=== PATIENT | male | born 1955 | race Hispanic/Latino ===

== ENCOUNTER 2017-06-13 05:59 | Inpatient (IN) | payer MEDICARE ==
[2017-06-13 07:49] LABS: Anion Gap 30 mmol/L (10-20); BUN (Urea Nitrogen) 117 mg/dL (8.4-25.7); Calc. Creatinine Clearance 0 mL/min (70-130); Carbon Dioxide 12 mmol/L (23-31); Chloride 93 mmol/L (98-107); Estimated GFR-MDRD 4; Glucose 218 mg/dL (80-115); Sodium 128 mmol/L (136-145)
[2017-06-13 07:57] LABS: Troponin I 0.861 ng/mL (< 0.028)
[2017-06-13] MEDS ORDERED: Sodium Bicarb 50 MEQ/50 ML Abboject 8.4% SYRINGE ONE (08:39)
[2017-06-13] MEDS ORDERED: Insulin Regular 300 UNITS/3 ML VIAL ONE (08:39)
[2017-06-13] MEDS ORDERED: Dextrose 50% Abboject 50 ML SYRINGE ONE (08:39)
[2017-06-13] MEDS ORDERED: Vancomycin HCl 1 GM in Premix Bag 1 BAG IVPB SCH ×2 (11:15→15:30)
[2017-06-13] MEDS ORDERED: Meropenem 1 GM in Sodium Chloride 0.9% 100 ML IVPB SCH (11:30)
[2017-06-13] MEDS ORDERED: Dextrose 5% in Water 1,000 ML IV PRN (11:55)
[2017-06-13] MEDS ORDERED: Dextrose 50% Abboject 50 ML SYRINGE SLOW IVP PRN (11:55)
[2017-06-13] MEDS ORDERED: Senokot 8.6 MG TAB PO PRN (11:56)
[2017-06-13] MEDS ORDERED: Bisacodyl 10 MG SUPP PR PRN (11:56)
[2017-06-13 11:59] LABS: HBSAg Index 0.38 S/CO (0-0.99); Hep B Surf Ag Non-Reactive S/CO (NonReactive)
[2017-06-13] MEDS ORDERED: hydrALAZINE 20 MG/ML VIAL SLOW IVP PRN (12:11)
[2017-06-13] MEDS: Acetaminophen 325 MG TAB PO PRN ×2 (12:11→16:35)
[2017-06-13] MEDS ORDERED: Eucerin (Mineral Oil/Petrolatum,White) 30 gm Jar TOP PRN (12:11)
[2017-06-13 12:12] LABS: Troponin I 0.951 ng/mL (< 0.028)
--- NOTE | 2017-06-13 12:13 | HP ---
DATE OF ADMISSION: 06/13/2017 PRIMARY CARE PHYSICIAN: Rosalinda Vicente M.D. PRIMARY SHARE DAIRY FARMER: New Stahl M.D. CHIEF COMPLAINT: Fatigue. Patient is a transfer from [facility]. HISTORY OF PRESENT ILLNESS: Patient is a 61-year-old male with end-stage renal disease on h emodialysis, cirrhosis with portal hypertension, diabetes mellitus type 2, coronary artery disease, a nd hypertension who presented to [facility] with generalized weakness and fatigue of 3 d ays duration. The patient had missed hemodialysis on Saturday. He was last dialyzed on Saturday. He had some cough which was productive of small amount of phlegm. No fever or chills reported. He den ies any chest pain, shortness of breath, palpitations, lightheadedness, dizziness or syncope. No cam sea, vomiting, diarrhea or abdominal pain reported. He denies any skin rash. No sick contacts repor jose. In the emergency room at [facility], his temperature was 99.8 with pulse rate of 133, re spirations 26, blood pressure of 157/57. His initial troponin was 0.69. His potassium was 8.3 with creatinine of 12.6, BUN 110 with bicarbonate of 14. He received sodium bicarbonate, calcium gluconat e 2 grams, insulin D50, and albuterol nebulization along with aspirin and was transferred to [facility] for hospital admission. At this time, his temperature was 102. He is currently undergoing mumtaz rgent hemodialysis. PAST MEDICAL HISTORY: 1. End-stage renal disease, on hemodialysis Saturday, Saturday, Saturday by Dr. Stahl. 2. Cirrhosis with portal hypertension. 3. Secondary hyperparathyroidism. 4. Diabetes mellitus type 2. 5. Coronary artery disease. 6. Chronic anemia secondary to renal insufficiency. 6. Hypertension. 7. Folic acid deficiency. 8. Former smoker. Patient has [id number] smoking history. 9. Coronary stent placement. 10. History of esophageal varices. 11. History of endocarditis. PAST SURGICAL HISTORY: 1. Cardiac catheterization with stent placement in [place]. 2. EGD and colonoscopy in 2017 in [place] and 4 years ago, patient had EGD and colonoscopy in [place] . 3. Dialysis access. 4. Bowel surgery in 2015. 5. Colostomy in 2016. ALLERGIES: Patient is allergic to ANCEF and FLAGYL. CURRENT HOME MEDICATIONS: Patient does not remember any of his home medications. Family to bring th e accurate list of medications. SOCIAL HISTORY: Patient currently lives at home. No smoking, alcohol or drug use. He continues to smoke up to 3 cigarettes a day. FAMILY HISTORY: Negative for premature coronary artery disease. Mother with Alzheimer dementia. Fa ther with congestive heart failure. One brother with colon disease requiring colon resection. REVIEW OF SYSTEMS: The following complete review of systems was negative, unless otherwise mentioned in the HPI or below: Constitutional: Weight loss or gain, ability to conduct usual activities. Skin: Rash, itching. Eyes: Double vision, pain. ENT/Mouth: Nose bleeding, neck stiffness, pain, tenderness. Cardiovascular: Palpitations, dyspnea on exertion, orthopnea. Respiratory: Shortness of breath, wheezing, cough, hemoptysis, fever or night sweats. Gastrointestinal: Poor appetite, abdominal pain, heartburn, nausea, vomiting, constipation, or diarr hea. Genitourinary: Urgency, frequency, dysuria, nocturia. Musculoskeletal: Pain, swelling. Neurologic/Psychiatric: Anxiety, depression. Allergy/Immunologic: Skin rash, bleeding tendency. PHYSICAL EXAMINATION: VITAL SIGNS: As discussed above. GENERAL: A 61-year-old male, ill appearing. Sitting appropriately. Slow to respond. HEENT: Head is atraumatic, normocephalic. Sclerae are anicteric. Moist mucous membranes. NECK: Supple, no JVD, no neck stiffness. LUNGS: Had scattered rhonchi, without any wheezing or rales. Symmetrical. Trachea midline. HEART: S1 and S2 present. Regular rate and rhythm, 2/6 systolic murmur over the mitral area. ABDOMEN: Soft, nontender, bowel sounds present. EXTREMITIES: 1+ edema in bilateral lower extremities. No calf tenderness. SKIN: Warm and dry. LYMPH NODES: No palpable lymph nodes in the neck. PERIPHERAL VASCULAR: Radial pulses palpable bilaterally. MUSCULOSKELETAL: No joint swelling or tenderness. NEUROLOGIC: As discussed above. PSYCHIATRY: As discussed above. LYMPH NODES: No palpable lymph nodes in the neck. LABORATORY DATA AND IMAGING DATA: Laboratory findings as discussed above. Repeat potassium at this facility was 7. Repeat troponin was 0.861. BNP was 4354. LFT showed total bilirubin 0.7 with alkal ine phosphatase 192. AST 15, ALT 16, albumin of 3.6. EKG by my review showed peaked T-wave changes. Chest x-ray at [facility] was consistent with volume overload. IMPRESSION: 1. Sepsis with acute organ dysfunction of unclear etiology. 2. Volume overload with life threatening hyperkalemia requiring emergent hemodialysis. 3. End-stage renal disease on hemodialysis. 4. Chronic anemia requiring blood transfusions in the past. 5. Coronary artery disease with stent placement with elevated troponins. 6. Diabetes mellitus type 2. 7. Ongoing tobacco abuse with [id number] smoking history. 8. Cirrhosis with portal hypertension. 9. Secondary hyperparathyroidism. 10. Folic acid deficiency. 11. Hypertension. 12. Gastroesophageal reflux disease. 13. History of endocarditis in the past. 14. History of esophageal varices. PLAN: The patient will be monitored on the telemetry unit. He is currently undergoing emergent hemo dialysis. We will empirically start him on antibiotics after cultures. Consult Infectious Disease, Nephrology and Cardiology. Follow serial cardiac enzymes. Echocardiogram will be done. Aspirin; we will confirm home medications and start accordingly. Insulin sliding scale. Check ammonia level du e to somnolence. Patient was counseled to quit tobacco abuse. Plan of care was discussed with the p atient in detail. He stated understanding. Plan of care was discussed with the patient in detail. He stated understanding.
[2017-06-13] MEDS ORDERED: Oseltamivir 75 MG CAP PO SCH (12:30)
[2017-06-13 14:43] VITALS: BMI 32.9
[2017-06-13] MEDS ORDERED: Vancomycin HCl 1.5 GM in Sodium Chloride 0.9% 250 ML 300 ML IVPB SCH (15:30)
[2017-06-13] MEDS ORDERED: Vancomycin HCl 500 MG in Sodium Chloride 0.9% 100 ML IVPB SCH (15:30)
[2017-06-13] MEDS ORDERED: HOLD VANCOMYCIN FOR LEVEL >20 FS SCH (15:30)
[2017-06-13] MEDS ORDERED: Vancomycin HCl 1.25 GM in Sodium Chloride 0.9% 250 ML 250 ML IVPB SCH (15:30)
[2017-06-13] MEDS ORDERED: Vancomycin Sliding Scale 1 EACH FS ONE (15:30)
[2017-06-13] MEDS: Meropenem 500 MG, Admixture Fee 1 EACH in Sterile Water 10 ML SLOW IVP SCH (16:13)
[2017-06-13] MEDS: Insulin Regular 300 UNITS/3 ML VIAL SC PRN (16:35)
[2017-06-13] MEDS ORDERED: traMADol HCl 50 MG TAB PO PRN (20:21)
[2017-06-13] MEDS: Docusate 100 MG CAP PO SCH (20:42)
[2017-06-13] MEDS: Famotidine 20 MG TAB PO SCH (20:42)
[2017-06-13] MEDS: traMADol HCl 50 MG TAB PO PRN (20:43)
[2017-06-13] MEDS ORDERED: Famotidine/PF 20 mg/2ml Vial SLOW IVP SCH (21:00)
[2017-06-14] MEDS: Acetaminophen 325 MG TAB PO PRN (00:29)
--- NOTE | 2017-06-14 03:37 | CON ---
DATE OF CONSULTATION: 06/13/2017 REASON FOR CONSULTATION: Increased troponin levels, end-stage renal disease, recent atrial fibrillat ion, recent hyperkalemia and fever. HISTORY OF PRESENT ILLNESS: Mr. Garrett is a 61-year-old gentleman who is on hemodialysis. He has cirr hosis, portal hypertension, and coronary disease. He went to the hospital in [place] with hypertensi on, generalized weakness and fatigue. He missed one day of hemodialysis. His last dialysis was . He had cough, which was productive of phlegm. No subjective fever or chills. No chest pain. I n the emergency room, he was found to have a heart rate of 133 with atrial fibrillation and increased troponin level. He had low bicarbonate. He was found also to have a fever of 102 degrees. PAST MEDICAL HISTORY: 1. End-stage renal disease, on hemodialysis Saturday, Saturday, Saturday. 2. Cirrhosis. 3. Hyperparathyroidism. 4. Diabetes. 5. Coronary artery disease. He says he had stents placed year and a half ago. [facility] and stents were placed at that time. He did not have bruce st pain or pressure. ALLERGIES: The patient is allergic to ANCEF, and FLAGYL. SOCIAL HISTORY: Lives at home, continues to smoke three cigarettes per day. FAMILY HISTORY: Negative for heart disease in young age. REVIEW OF SYSTEMS: CONSTITUTIONAL: No significant weight gain or loss. VISION: No changes. HEARING: No changes. PULMONARY: Positive for cough. CARDIAC: No chest pain. GASTROINTESTINAL: No nausea, vomiting, or diarrhea. SKIN: No rashes. NEUROLOGIC: No unilateral weakness or numbness. PSYCHIATRIC: No unusual depression or anxiety. HEMATOLOGIC: No unusual bruising. GENITOURINARY: No burning with urination. PHYSICAL EXAMINATION: GENERAL: This is a pleasant gentleman resting comfortably in no distress. VITAL SIGNS: Most recent fevers 102 degrees. EYES: Sclerae nonicteric. Mouth mucous membranes moist. NECK: Supple, no lymphadenopathy. LUNGS: Clear, no wheezing, rales or rhonchi. CARDIOVASCULAR: Normal S1, normal S2. There is no murmur, rub or gallop. ABDOMEN: Soft, nontender, no hepatosplenomegaly. 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 No clubbing, cyanosis or edema. PERTINENT LABORATORY AND X-RAY FINDINGS: Potassium was 7.0 before dialysis, sodium is 128. Troponin 0.951. The patient did have atrial fibrillation. [facility] had a right bundle branch block at that time. The patient has sinus rhythm with no longer has a right bundle, does have left anterior fascicular block. ASSESSMENT: 1. Increased troponin level by demand ischemia. 2. Previous coronary artery disease. 3. Fever. 4. Hyperkalemia. 5. Hyponatremia. 6. History of coronary artery disease. PLAN: 1. Continue supportive care. 2. When the fever resolves consideration for stress testing to be given probably on Saturday if he i s doing well. 3. Blood cultures are pending. He says he does apparently have a history of endocarditis.
[2017-06-14] MEDS: traMADol HCl 50 MG TAB PO PRN ×2 (04:50→14:42)
[2017-06-14 05:21] LABS: INR-International Normal Ratio 1.3; Prothrombin Time 16.5 SEC (12.0-14.7)
[2017-06-14 05:44] LABS: Band 5 % (5-11); Lymphocytes 3 % (21-51); MDiff Complete? YES; Mean Corpuscular Hemoglobin 29.7 pg (27.0-31.0); Mean Corpuscular Volume 92.7 fl (80.0-94.0); Mean Platelet Volume 13.2 fL (7.4-10.4); Monocytes 8 % (0-10); Neutrophil 84 % (42-75); PLT Morphology Comment Appears Decreased; Platelet Count 44 thou/uL (130-400); RBC Distribution Width 17.4 % (11.5-14.5); Red Blood Cell (RBC) Count 3.01 mill/uL (4.70-6.10); White Blood Cell (WBC) Count 7.2 thou/uL (4.8-10.8)
[2017-06-14 05:56] LABS: ALT (SGPT) 11 U/L (8-55); AST (SGOT) 16 U/L (5-34); Albumin 3.1 g/dL (3.4-4.8); Alkaline Phosphatase 143 U/L (40-150); Anion Gap 21 mmol/L (10-20); BUN (Urea Nitrogen) 58 mg/dL (8.4-25.7); Calc. Creatinine Clearance 14 mL/min (70-130); Calcium 7.5 mg/dL (7.8-10.44); Carbon Dioxide 25 mmol/L (23-31); Chloride 90 mmol/L (98-107); Estimated GFR-MDRD 7; Globulin 3.1 g/dL (2.4-3.5); Glucose 206 mg/dL (80-115); Potassium 6.2 mmol/L (3.5-5.1); Protein, Total 6.2 g/dL (5.8-8.1); Sodium 130 mmol/L (136-145)
--- NOTE | 2017-06-14 06:50 | CON ---
DATE OF CONSULTATION: 06/13/2017 CONSULTING PHYSICIAN: Dr. Parr. REASON FOR CONSULTATION: Hyperkalemia. REASON FOR ADMISSION: Fatigue. HISTORY OF PRESENT ILLNESS: This is a 61-year-old male with history of end-stage renal disease, cirrhosis, type 2 diabetes, hypertension, coronary artery disease, who came to the hospital with weakness. The patient missed dialysis for a few days and came to the hospital and was found to have potassium of 8.3 with EKG changes. Nephrology was consulted for emergent dialysis. The patient was seen in the ER and emergent dialysis order given. The patient is very weak and was later found to have a fever and had further workup. PAST MEDICAL HISTORY: Positive for end-stage renal disease, cirrhosis, portal hypertension, secondary hyperparathyroidism, type 2 diabetes, coronary artery disease, anemia, hypertension, folic acid, tobacco use, . PAST SURGICAL HISTORY: Cardiac catheterization, EGD, colonoscopy, dialysis access placed, bowel surgery, colostomy. HOME MEDICATIONS: Tramadol, ropinirole, zolpidem, Chantix, promethazine, Singulair, [place], Folvite, iron, PhosLo, atorvastatin, aspirin. ALLERGIES: CEFAZOLIN, METRONIDAZOLE, PREDNISONE. SOCIAL HISTORY: No smoking, alcohol, or illicit drug abuse. FAMILY HISTORY: Positive for heart disease. REVIEW OF SYSTEMS: The following complete review of systems was negative, unless otherwise mentioned in the HPI or below: Constitutional: Weight loss or gain, ability to conduct usual activities. Skin: Rash, itching. Eyes: Double vision, pain. ENT/Mouth: Nose bleeding, neck stiffness, pain, tenderness. Cardiovascular: Palpitations, dyspnea on exertion, orthopnea. Respiratory: Shortness of breath, wheezing, cough, hemoptysis, fever or night sweats. Gastrointestinal: Poor appetite, abdominal pain, heartburn, nausea, vomiting, constipation, or diarrhea. Genitourinary: Urgency, frequency, dysuria, nocturia. Musculoskeletal: Pain, swelling. Neurologic/Psychiatric: Anxiety, depression. Allergy/Immunologic: Skin rash, bleeding tendency. PHYSICAL EXAMINATION: GENERAL: This is a well-built male, in no apparent distress. VITAL SIGNS: Temperature 96, pulse 100, respiratory rate 14, blood pressure 128 /69. HEENT: Atraumatic, normocephalic. Oral mucosa is moist. NECK: Supple, no masses. CARDIOVASCULAR: S1, S2 heard. Rate and rhythm regular. RESPIRATORY: Clear. ABDOMEN: Soft. MUSCULOSKELETAL: 1+ edema. DERMATOLOGIC: No skin rash. NEUROLOGIC: Alert and awake. PSYCHIATRIC: depressed LABORATORY: Potassium is 7.0, BUN is 117, creatinine is 12.2. ASSESSMENT AND PLAN: 1. Severe hyperkalemia with life threatening EKG changes. Plan is to have emergent dialysis, hyponatremia. 2. Acidosis. We will have dialysis. 3. Azotemia. 4. End-stage renal disease on dialysis. 5. Hypertension. We will continue on medication. 6. Fever. workup. Will check echocardiogram, chest x-ray, and further workup. Plan is to continue dialysis as tolerated. Limit potassium intake. MTDD
--- NOTE | 2017-06-14 08:44 | RAD ---
UPRIGHT PORTABLE CHEST ONE VIEW: HISTORY: A 61-year-old male with sepsis. COMPARISON: 02/03/2015 FINDINGS: Monitor leads overly the chest. Increased linear and interstitial markings bilaterally without confl uent pneumonia, overt edema, or pleural effusion. No cardiomegaly. IMPRESSION: Stable increased markings bilaterally. No evidence of pneumonia or other acute process. POS: [facility]
[2017-06-14] MEDS ORDERED: Aspirin 325 MG TAB PO SCH (09:00)
[2017-06-14 10:18] LABS: Vancomycin, Trough 22.5 ug/mL
--- NOTE | 2017-06-14 11:41 | PRG ---
DATE OF SERVICE: 06/14/2017 SUBJECTIVE: Patient was seen and examined at bedside and overnight events noted. Patient denies any shortness of breath or chest pain or palpitation. No history of nausea or vomiting or diarrhea or f ever or chills or cramps. OBJECTIVE: GENERAL: This is a well-built male in no apparent distress. VITAL SIGNS: Temperature 99.3, pulse 82, respiratory rate 20, blood pressure 137/67. HEENT: Atraumatic, normocephalic. Oral mucosa is moist. NECK: Supple. CARDIOVASCULAR: S1, S2 heard. Rate and rhythm regular. RESPIRATORY: Clear to auscultation. GASTROINTESTINAL: Abdomen is soft. MUSCULOSKELETAL: No tenderness. No edema. DERMATOLOGIC: No skin rash. NEUROLOGIC: Alert and awake and oriented x3. No focal neurologic deficits. Moving all the extremiti es. PSYCHIATRIC: Mood and affect normal. LABORATORY DATA: Potassium 6.2, BUN is 15, creatinine 8.2. ASSESSMENT AND PLAN: 1. End-stage renal disease. We will continue on hemodialysis. 2. Hyperkalemia, dialysis. 3. Hyponatremia. 4. Edema. 5. Hypertension. 6. Hyperglycemia. 7. Hypoalbuminemia. Plan is to continue on dialysis as tolerated. The patient was advised on potassium intake.
--- NOTE | 2017-06-14 12:18 | EKG ---
Test Reason : Blood Pressure : / mmHG Vent. Rate : 071 BPM Atrial Rate : 075 BPM P-R Int : 000 ms QRS Dur : 112 ms QT Int : 448 ms P-R-T Axes : 000 -58 072 degrees QTc Int : 486 ms Atrial fibrillation Left anterior fascicular block Nonspecific ST abnormality , probably digitalis effect Prolonged QT Abnormal ECG Confirmed by FRENCH RAO ([id number]), photograph editor EVAN HEARD ([id number]) on 06/14/2017 12:18:15 PM Referred By: Confirmed By:FRENCH RAO
[2017-06-14] MEDS: Docusate 100 MG CAP PO SCH ×2 (14:40→21:11)
[2017-06-14] MEDS: Multivit, Therapeutic 1 TAB PO SCH (14:41)
[2017-06-14] MEDS: Folic Acid 1 MG TAB PO SCH (14:41)
[2017-06-14] MEDS: Saccharomyces boulardii 250 MG CAP PO SCH (14:41)
[2017-06-14] MEDS: Meropenem 500 MG, Admixture Fee 1 EACH in Sterile Water 10 ML SLOW IVP SCH (15:14)
--- NOTE | 2017-06-14 16:04 | CON ---
DATE OF CONSULTATION: 06/14/2017 REASON FOR CONSULTATION: Fever, bacteremia. HISTORY OF PRESENT ILLNESS: A 61-year-old known to us from visit about 4 years ago with a longstandi ng history of end-stage renal disease secondary to type 2 diabetes mellitus, who has had various dial ysis accesses in the past including peritoneal dialysis catheter which has been removed. A temporary tunneled catheter for dialysis and then eventually an AV fistula which has been in place and functio nal now for the past many years. In 2013, I saw him for fever of unknown origin. At that time, he h ad Peptostreptococcus bacteremia and was treated for a protracted period of time following an echocar diogram report which demonstrated vegetation in the aortic valve. The patient was admitted twice in 2014 once for uremia and the second time because of CAPD associated peritonitis which was managed wit h antimicrobials and removal of the peritoneal dialysis catheter. Then, in 02/2016, he presented wit h symptomatic anemia; then this year in October, he was admitted with symptomatic anemia again suspected hemolytic anemia. At this time, he was in usual state until about 3 days before admission when he de veloped fever, general malaise. He missed his dialysis because of the illness and having lost his [employer] phone and eventually ended up in the emergency room at [facility] after being through cam annelise at [facility] ER where he presented with weakness and fatigue, having missed hem odialysis, had a little bit of cough, although in the history, it is stated that he did not report an y fever; to me, immediately said he did have fever and chills and took Tylenol for it in the home set ting. Initial evaluation at [facility] showed a temperature of 99.8 with a pulse of 133 and blood pressure 150/57, potassium is 8.3, and creatinine 12.6. On arrival to [facility], his t emperature was 102 and he underwent emergency hemodialysis. Now we have 2/2 sets positive for gram p ositive cocci. In clusters here at [facility], one of the sets has been identified as Staphylococc us epidermides and there is at least another set from [place] which also has a gram positive cocci in clusters, yet to be identified and susceptibility tested. Mr. Garrett is feeling better at this time. His recollection is still somewhat cloudy. Flow of speech is kind of halting and there is a little bit of confabulation, but he seems to be oriented. REVIEW OF SYSTEMS: He denies any headaches, no change in visual symptoms, sore throat, odynophagia, dysphagia. No toothache, no back pain, no chest pain or cough, no abdominal pain. Void is a little bit sometimes no diarrhea, no other joint symptoms. No neurological symptoms. 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 PAST SURGICAL HISTORY: Includes cardiac catheterization with stenting, EGD and colonoscopy, dialysis access placements including PD and HD catheter and AV fistula, bowel surgery some form bowel surgica l ostomy. ALLERGIES: ANCEF and FLAGYL with rash. CURRENT MEDICATIONS: Tylenol, DuoNeb, Ecotrin, Dulcolax, dextrose, Colace, Pepcid, Folvite, glucagon , Apresoline, insulin, lactulose, meropenem, vancomycin, and sliding scale. FAMILY HISTORY: Noncontributory. SOCIAL HISTORY: The patient is a current smoker, but has decreased the amount. PHYSICAL EXAMINATION: VITAL SIGNS: T-MAX 102.3 earlier today, is currently 99.3, blood pressure 140/67, pulse 83, respirat ions 16-20, O2 sat 97% on 2 liters. SKIN: Patient has skin hyperpigmentation. He appears in no distress. His left arm AV fistula is ac cessed and functional. No tenderness. Does not have a Hernandez catheter. No areas of skin breakdown. No petechia in the extremities. No lymphadenopathy. HEENT: Ocular movements are conjugate. A few areas with evidence of subconjunctival hemorrhages. P upils are equal and reactive. Oral cavity with no significant findings. NECK: Supple. LUNGS: With symmetric clear breath sounds. HEART: Showed S1, S2 with a soft 2/6 murmur at the base of the heart, second IC space to right and l eft of the sternal borders. [place] impulse is not displaced. ABDOMEN: Soft, not distended or tender. No ascites. No bladder distention, no organomegaly noted. : No genital abnormalities. EXTREMITIES: No joint inflammatory activity. Pulses are 1+ in dorsalis pedis. NEUROLOGIC: Plantar responses are flexure. Able to move extremities equally. He is awake, knows hi s name. He knows where he is. He has a little bit of difficulty in giving me the report and some re collection issues, but eventually he was able to provide the history. He loses track of his thought process sometimes. LABORATORY DATA: White cell count 7.2, hemoglobin 9, MCV 92, platelets 44 with 44% neutrophils. INR 1.3. Sodium 130, creatinine 8, potassium 6.2. Liver profile normal. Calcium 7.5. CRP 23, albumin 3.1. Vancomycin trough 22. Hepatitis surface antigen nonreactive and 2 sets of blood cultures as n oted above with the positive findings. Chest x-ray with stable increased markings, but no consolidat ion. Last echocardiogram is from 01/29/2017 with normal ejection fraction. There is a transesophage al echo from 07/31/2016 with a calcified aortic valve leaflets, no obvious vegetations and no signifi cant aortic regurgitation. ASSESSMENT: 1. End-stage renal disease secondary to type 2 diabetes mellitus. 2. Liver cirrhosis with portal hypertension. 3. Sepsis with bacteremia. DISCUSSION: Differential diagnosis includes endocarditis of the heavily calcified aortic valve. Con tamination of the sample is another consideration and will have to wait on the full identification of the organisms before we make a judgment on that. If it is the same organism that grew from the [facility] les in [place], as well as the two sets obtained here, then he will need a SHARON to evaluate the valve and if that is positive, then at least 6 weeks of IV vancomycin sliding scale at dialysis. If the or ganisms are of different identities in the different sets then we will have to reassess.
--- NOTE | 2017-06-14 18:23 | PRG ---
DATE OF SERVICE: 06/14/2017 SUBJECTIVE: Mr. Garrett feels much better today. OBJECTIVE: VITAL SIGNS: He is afebrile 98.3, earlier 99.6. Blood pressure 142/65, pulse 90. LUNGS: He has no chest pain or pressure. Lungs are clear. CARDIAC: Normal S1, normal S2. ABDOMEN: Soft, nontender. EXTREMITIES: There is no edema. ASSESSMENT: 1. The patient was found to have Staphylococcus epidermidis and the blood culture probably has recur rent endocarditis. 2. History of aortic valve endocarditis in the past. PLAN: 1. Echocardiogram is pending. 2. May need transesophageal echo. 3. No indication for stress testing at this point, it looks like the findings yesterday were due to demand ischemia.
--- NOTE | 2017-06-14 19:43 | PDOC.PN ---
- Subjective Encounter Start Date: 06/14/17 Encounter Start Time: 09:30 Patient seen and examined during dialysis. No new complaints. Mentation better. No overnight events. - Objective Resuscitation Status: Resuscitation Status FULL:Full Resuscitation MAR Reviewed: Yes Vital Signs & Weight: Vital Signs (12 hours) Temp Pulse Resp BP BP BP BP 06/14/17 19:19 06/14/17 19:17 85 16 06/14/17 15:32 85 16 06/14/17 15:25 99.6 F 94 19 142/65 H 06/14/17 14:30 98.3 F 91 20 127/59 L 06/14/17 08:40 147/67 H 137/67 130/62 06/14/17 08:00 99.3 F 83 20 144/59 H 06/14/17 07:55 06/14/17 07:52 88 16 06/14/17 07:43 99.3 F 83 20 Pulse Ox 06/14/17 19:19 93 L 06/14/17 19:17 93 L 06/14/17 15:32 97 06/14/17 15:25 91 L 06/14/17 14:30 92 L 06/14/17 08:40 06/14/17 08:00 97 06/14/17 07:55 97 06/14/17 07:52 97 06/14/17 07:43 97 Weight Weight 230 lb 11.2 oz I&O: 06/13/17 06/14/17 06/15/17 06:59 06:59 06:59 Intake Total 1460 Output Total 550 Balance 910 Result Diagrams: 06/14/17 04:43 06/14/17 04:43 Additional Labs: Accuchecks 06/14/17 06/14/17 06/13/17 15:07 06:23 20:49 POC Glucose 152 H 231 H 274 H Microbiology 06/13/17 11:37 Artery - Left Arm Blood Culture - Preliminary Gram Positive Cocci 06/13/17 11:23 Venous blood - Left Arm Blood Culture - Preliminary Staphylococcus epidermidis Radiology Reviewed by me: Yes (CXR - no infiltrate) EKG Reviewed by me: Yes (Tele SR) Phys Exam - Physical Examination Constitutional: NAD Respiratory: no wheezing, no rales, no rhonchi, clear to auscultation bilateral Cardiovascular: RRR, no rub no heaves/pulsations Gastrointestinal: soft, non-tender, no distention, positive bowel sounds Musculoskeletal: no edema Neurological: non-focal, moves all 4 limbs Psychiatric: A&O x 3 Dx/Plan - Plan continue antibiotics, DVT proph w/SCDs IMPRESSION: 1. Sepsis with acute organ dysfunction/Staph epi. bacteremia 2. Volume overload with life threatening hyperkalemia requiring emergent hemodialysis. 3. Toxic Metabolic Encephalopathy 4. End-stage renal disease on hemodialysis. 5. Coronary artery disease with stent placement with elevated troponins. 6. Diabetes mellitus type 2. on sliding scale 7. Ongoing tobacco abuse with [id number] smoking history. 8. Cirrhosis with portal hypertension/esophageal varices 9. Secondary hyperparathyroidism. 10. Folic acid deficiency/Chronic anemia due to renal disease 11. Hypertension. 12. GERD 13. History of endocarditis in the past. PLAN: * Cont Vancomycin/Meropenem * Await ID input * Await Echo * Cardio/Nephro following * Cont current meds as below * Resume selected home meds * Cont to monitor * PT eval Review of Systems - Review of Systems Respiratory: negative: Cough, Dry, Shortness of Breath, Hemoptysis, SOB with Excertion, Pleuritic Pain, Sputum, Wheezing Cardiovascular: negative: chest pain, palpitations, orthopnea, paroxysmal nocturnal dyspnea, edema, light headedness - Medications/Allergies Allergies/Adverse Reactions: Allergies Allergy/AdvReac Type Severity Reaction Status Date / Time cefazolin sodium [From Ancef] Allergy Rash Verified 01/15/15 01:38 metronidazole [From Flagyl] Allergy Rash Verified 01/15/15 01:38 prednisone Allergy Verified 06/13/17 14:42 Medications: Current Medications Acetaminophen (Tylenol) 650 mg PO Q4H PRN PRN Reason: Headache/Fever or Mild Pain Last Admin: 06/14/17 00:29 Dose: 650 mg Albuterol/Ipratropium (Duoneb) 3 ml NEB [id number] RUBY Last Admin: 06/14/17 19:17 Dose: 3 ml Albuterol/Ipratropium (Duoneb) 3 ml NEB [id number] PRN PRN Reason: SOB &/or Wheezing Aspirin (Ecotrin) 81 mg PO DAILY RU[facility] Bisacodyl (Dulcolax) 10 mg TN Q24H PRN PRN Reason: Constipation Dextrose/Water (Dextrose 50%) 25 gm SLOW IVP PRN PRN PRN Reason: Hypoglycemia Docusate Sodium (Colace) 100 mg PO BID [facility] Last Admin: 06/14/17 14:40 Dose: 100 mg Famotidine (Pepcid) 20 mg PO QPM [facility] Last Admin: 06/13/17 20:42 Dose: 20 mg Folic Acid (Folvite) 1 mg PO DAILY [facility] Last Admin: 06/14/17 14:41 Dose: 1 mg Glucagon (Glucagon) 1 mg IM PRN PRN PRN Reason: Hypoglycemia Hydralazine HCl (Apresoline) 10 mg SLOW IVP Q4H PRN PRN Reason: SBP Greater Than 180 Dextrose/Water (D5w) 1,000 mls @ 0 mls/hr IV .Q0M PRN; As Directed PRN Reason: Hypoglycemia Meropenem 500 mg/Miscellaneous Medication 1 each/ Sterile Water 10 mls @ 120 mls/hr SLOW IVP 1300 [facility] Last Admin: 06/14/17 15:14 Dose: 10 mls Vancomycin HCl 1.25 gm/ Sodium (Chloride) 250 mls @ 166.667 mls/hr IVPB WILLCALL [facility] Vancomycin HCl 1 gm/ Device 200 mls @ 200 mls/hr IVPB WILLCALL [facility] Vancomycin HCl 750 mg/ Sodium (Chloride) 250 mls @ 250 mls/hr IVPB [facility]CALL [facility] Vancomycin HCl 500 mg/ Sodium (Chloride) 100 mls @ 100 mls/hr IVPB [facility] Insulin Human Regular (Humulin R) 0 units SC .MILD SLIDING SCALE PRN PRN Reason: Mild Correctional Scale Last Admin: 06/13/17 16:35 Dose: 5 unit Insulin Human Regular (Humulin R) 0 units SC .BEDTIME SLIDING SC PRN PRN Reason: Bedtime Correctional Scale Lactulose (Lactulose) 20 gm PO DAILYPRN PRN PRN Reason: Constipation Mineral Oil/White Petrolatum (Eucerin Cream) 0 gm TOP BIDPRN PRN PRN Reason: Dry Skin Miscellaneous Medication (Pharmacy To Dose) 1 each IVPB ONE PRN PRN Reason: Pharmacy to dose Stop: 07/13/17 11:16 Multivitamins (Theragran) 1 tab PO DAILY [facility] Last Admin: 06/14/17 14:41 Dose: 1 tab Nitroglycerin (Nitrostat) 0.4 mg PO Q5MIN PRN PRN Reason: Chest Pain Hold Vancomycin For (Level >20) 0 each FS .AT DIALYSIS [facility] Saccharomyces Boulardii (Florastor) 250 mg PO DAILY [facility] Last Admin: 06/14/17 14:41 Dose: 250 mg Senna (Senokot) 2 tab PO HSPRN PRN PRN Reason: Constipation Sodium Chloride (Flush - Normal Saline) 10 ml IVF Q12HR [facility] Last Admin: 06/14/17 14:42 Dose: 10 ml Sodium Chloride (Flush - Normal Saline) 10 ml IVF PRN PRN PRN Reason: Saline Flush Tramadol HCl (Ultram) 50 mg PO Q8H PRN PRN Reason: Pain Last Admin: 06/14/17 14:42 Dose: 50 mg
[2017-06-14] MEDS: rOPINIRole HCl 0.25 MG TAB PO SCH (21:11)
[2017-06-14] MEDS: Famotidine 20 MG TAB PO SCH (21:11)
[2017-06-14] MEDS: Insulin Regular 300 UNITS/3 ML VIAL SC PRN (21:12)
[2017-06-15] MEDS: Acetaminophen 325 MG TAB PO PRN ×2 (04:30→21:32)
[2017-06-15 06:30] LABS: ALT (SGPT) 10 U/L (8-55); AST (SGOT) 20 U/L (5-34); Albumin 3.2 g/dL (3.4-4.8); Alkaline Phosphatase 131 U/L (40-150); Anion Gap 18 mmol/L (10-20); BUN (Urea Nitrogen) 40 mg/dL (8.4-25.7); Calc. Creatinine Clearance 19 mL/min (70-130); Calcium 8.5 mg/dL (7.8-10.44); Carbon Dioxide 29 mmol/L (23-31); Chloride 88 mmol/L (98-107); Estimated GFR-MDRD 9; Globulin 3.3 g/dL (2.4-3.5); Glucose 175 mg/dL (80-115); Potassium 5.1 mmol/L (3.5-5.1); Protein, Total 6.5 g/dL (5.8-8.1); Sodium 130 mmol/L (136-145)
[2017-06-15 07:53] LABS: Anisocytosis SLIGHT = 6-15 cells (100X) (0-5/hpf); Band 5 % (5-11); Hemoglobin 9.4 g/dL (14.0-18.0); Lymphocytes 3 % (21-51); MDiff Complete? YES; Mean Corpuscular HGB CONC 31.3 g/dL (32.0-36.0); Mean Corpuscular Hemoglobin 29.3 pg (27.0-31.0); Mean Corpuscular Volume 93.5 fl (80.0-94.0); Monocytes 11 % (0-10); Neutrophil 81 % (42-75); PLT Morphology Comment Appears Decreased; Platelet Count 47 thou/uL (130-400); Polychromasia SLIGHT = 2-3 cells (100X) (0-2/hpf); RBC Distribution Width 17.1 % (11.5-14.5); Red Blood Cell (RBC) Count 3.22 mill/uL (4.70-6.10); White Blood Cell (WBC) Count 7.2 thou/uL (4.8-10.8)
[2017-06-15 10:13] LABS: Vancomycin, Random 13.9 ug/mL (See Comment)
[2017-06-15] MEDS: Vancomycin HCl 750 MG in Sodium Chloride 0.9% 250 ML 250 ML IVPB SCH (10:52)
[2017-06-15] MEDS: Docusate 100 MG CAP PO SCH ×2 (13:02→21:32)
[2017-06-15] MEDS: Folic Acid 1 MG TAB PO SCH (13:02)
[2017-06-15] MEDS: Aspirin 81 mg Enteric Coated Tablet PO SCH (13:02)
[2017-06-15] MEDS: Saccharomyces boulardii 250 MG CAP PO SCH (13:02)
[2017-06-15] MEDS: Montelukast Sodium 10 mg Tablet PO SCH (13:02)
[2017-06-15] MEDS: Sevelamer Carbonate 800 MG TAB PO SCH ×3 (13:02→16:39)
[2017-06-15] MEDS: Multivit, Therapeutic 1 TAB PO SCH (13:02)
[2017-06-15] MEDS: Meropenem 500 MG, Admixture Fee 1 EACH in Sterile Water 10 ML SLOW IVP SCH (13:51)
--- NOTE | 2017-06-15 15:16 | PDOC.PN ---
- Subjective Encounter Start Date: 06/15/17 Encounter Start Time: 14:00 Patient is seen in HD today, He spiked fever today, His BLood cultures on were growing COagneg Staph. Explained to kaceytent he cannot go home today, as Cardioogy has planned for SHARON. - Objective Resuscitation Status: Resuscitation Status FULL:Full Resuscitation MAR Reviewed: Yes Vital Signs & Weight: Vital Signs (12 hours) Temp Pulse Pulse Pulse Resp BP BP 06/15/17 13:10 104 H 106 H 167/72 H 133/62 06/15/17 12:59 98.5 F 106 H 20 06/15/17 07:52 98.1 F 90 18 06/15/17 07:51 98.1 F 90 18 06/15/17 07:10 80 16 06/15/17 05:41 99.5 F 06/15/17 04:25 102.5 F H 101 H 20 06/15/17 04:19 06/15/17 04:18 BP BP Pulse Ox 06/15/17 13:10 06/15/17 12:59 157/66 H 91 L 06/15/17 07:52 94 L 06/15/17 07:51 147/66 H 94 L 06/15/17 07:10 94 L 06/15/17 05:41 06/15/17 04:25 141/63 H 94 L 06/15/17 04:19 92 L 06/15/17 04:18 93 L Weight Weight 230 lb 13.184 oz I&O: 06/14/17 06/15/17 06/16/17 06:59 06:59 06:59 Intake Total 1460 500 Output Total 550 100 Balance 910 400 Result Diagrams: 06/15/17 05:52 06/15/17 05:52 Additional Labs: Accuchecks 06/15/17 06/15/17 06/14/17 11:49 05:48 20:46 POC Glucose 181 H 166 H 318 H 06/14/17 15:07 POC Glucose 152 H Radiology Reviewed by me: Yes Phys Exam - Physical Examination HEENT: PERRLA, moist MMs, oral pharynx no lesions Neck: no nodes, no JVD Respiratory: no wheezing, no rales, clear to auscultation bilateral Cardiovascular: RRR, no significant murmur Gastrointestinal: soft, non-tender Musculoskeletal: no edema, pulses present Neurological: non-focal, normal sensation Lymphatic: no nodes Psychiatric: normal affect Dx/Plan (1) Anemia Code(s): D64.9 - ANEMIA, UNSPECIFIED Status: Acute Qualifiers: Anemia type: due to chronic kidney disease Chronic kidney disease stage: on chronic dialysis Qualified Code(s): N18.6 - End stage renal disease; D63.1 - Anemia in chronic kidney disease; D63.1 - Anemia in chronic kidney disease; Z99.2 - Dependence on renal dialysis; Z99.2 - Dependence on renal dialysis; Z99.2 - Dependence on renal dialysis; Z99.2 - Dependence on renal dialysis (2) Hemodialysis patient Code(s): Z99.2 - DEPENDENCE ON RENAL DIALYSIS Status: Chronic (3) Hypoglycemia Code(s): E16.2 - HYPOGLYCEMIA, UNSPECIFIED Status: Acute (4) Mild tricuspid regurgitation Code(s): I07.1 - RHEUMATIC TRICUSPID INSUFFICIENCY Status: Chronic (5) Symptomatic anemia Code(s): D64.9 - ANEMIA, UNSPECIFIED Status: Acute (6) Diabetes mellitus Code(s): E11.9 - TYPE 2 DIABETES MELLITUS WITHOUT COMPLICATIONS Status: Chronic Qualifiers: Diabetes mellitus type: type 2 Diabetes mellitus complication status: with kidney complications Diabetes mellitus complication detail: with chronic kidney disease Chronic kidney disease stage: on chronic dialysis (7) End stage renal disease Code(s): N18.6 - END STAGE RENAL DISEASE Status: Chronic (8) Hyponatremia Code(s): E87.1 - HYPO-OSMOLALITY AND HYPONATREMIA Status: Chronic - Plan cont current plan of care, continue antibiotics, PT/OT, DVT proph w/heparin * . IMPRESSION: 1. Hyperkalemia 2.Sepsis with acute organ dysfunction/Staph epi. bacteremia 2. Volume overload with life threatening hyperkalemia requiring emergent hemodialysis. 3. Toxic Metabolic Encephalopathy 4. End-stage renal disease on hemodialysis. 5. Coronary artery disease with stent placement with elevated troponins. 6. Diabetes mellitus type 2. on sliding scale 7. Ongoing tobacco abuse with [id number] smoking history. 8. Cirrhosis with portal hypertension/esophageal varices 9. Secondary hyperparathyroidism. 10. Folic acid deficiency/Chronic anemia due to renal disease 11. Hypertension. 12. GERD 13. History of endocarditis in the past. PLAN: Will repeat Blood Cultures and BMP to Look for Hyperkalemia improving with HD. Cont Vancomycin/Meropenem Await ID input Cardiology planned for SHARON Cardio/Nephro following Cont current meds as below Resume selected home meds Cont to monitor PT eval - Discharge Day Encounter end time: 14:30 Review of Systems - Review of Systems Constitutional: fever, weakness, malaise Eyes: negative: Pain, Vision Change, Conjunctivae Inflammation, Eyelid Inflammation, Redness, Other ENT: negative: Ear Pain, Ear Discharge, Nose Pain, Nose Discharge, Nose Congestion, Mouth Pain, Mouth Swelling, Throat Pain, Throat Swelling, Other Respiratory: negative: Cough, Dry, Shortness of Breath, Hemoptysis, SOB with Excertion, Pleuritic Pain, Sputum, Wheezing Cardiovascular: negative: chest pain, palpitations, orthopnea, paroxysmal nocturnal dyspnea, edema, light headedness, other Gastrointestinal: negative: Nausea, Vomiting, Abdominal Pain, Diarrhea, Constipation, Melena, Hematochezia, Other Musculoskeletal: negative: Neck Pain, Shoulder Pain, Arm Pain, Back Pain, Hand Pain, Leg Pain, Foot Pain, Other Skin: negative: Rash, Lesions, Teto, Bruising, Other Neurological: negative: Weakness, Numbness, Incoordination, Change in Speech, Confusion, Seizures, Other - Medications/Allergies Allergies/Adverse Reactions: Allergies Allergy/AdvReac Type Severity Reaction Status Date / Time cefazolin sodium [From Ancef] Allergy Rash Verified 01/15/15 01:38 metronidazole [From Flagyl] Allergy Rash Verified 01/15/15 01:38 prednisone Allergy Verified 06/13/17 14:42 Medications: Current Medications Acetaminophen (Tylenol) 650 mg PO Q4H PRN PRN Reason: Headache/Fever or Mild Pain Last Admin: 06/15/17 04:30 Dose: 650 mg Albuterol/Ipratropium (Duoneb) 3 ml NEB [id number] RUBY Last Admin: 06/15/17 10:49 Dose: Not Given Albuterol/Ipratropium (Duoneb) 3 ml NEB [id number] PRN PRN Reason: SOB &/or Wheezing Aspirin (Ecotrin) 81 mg PO DAILY [facility] Last Admin: 06/15/17 13:02 Dose: 81 mg Bisacodyl (Dulcolax) 10 mg [place] Q24H PRN PRN Reason: Constipation Dextrose/Water (Dextrose 50%) 25 gm SLOW IVP PRN PRN PRN Reason: Hypoglycemia Docusate Sodium (Colace) 100 mg PO BID [facility] Last Admin: 06/15/17 13:02 Dose: 100 mg Famotidine (Pepcid) 20 mg PO QPM [facility] Last Admin: 06/14/17 21:11 Dose: 20 mg Folic Acid (Folvite) 1 mg PO DAILY [facility] Last Admin: 06/15/17 13:02 Dose: 1 mg Glucagon (Glucagon) 1 mg IM PRN PRN PRN Reason: Hypoglycemia Hydralazine HCl (Apresoline) 10 mg SLOW IVP Q4H PRN PRN Reason: SBP Greater Than 180 Dextrose/Water (D5w) 1,000 mls @ 0 mls/hr IV .Q0M PRN; As Directed PRN Reason: Hypoglycemia Meropenem 500 mg/Miscellaneous Medication 1 each/ Sterile Water 10 mls @ 120 mls/hr SLOW IVP 1300 [facility] Last Admin: 06/15/17 13:51 Dose: 10 mls Vancomycin HCl 1.25 gm/ Sodium (Chloride) 250 mls @ 166.667 mls/hr IVPB WILLCALL [facility] Vancomycin HCl 1 gm/ Device 200 mls @ 200 mls/[facility] Vancomycin HCl 750 mg/ Sodium (Chloride) 250 mls @ 250 mls/hr IVPB WILLCALL [facility] Last Admin: 06/15/17 10:52 Dose: 250 mls Vancomycin HCl 500 mg/ Sodium (Chloride) 100 mls @ 100 mls/hr IVPB WILLCALL [facility] Insulin Human Regular (Humulin R) 0 units SC .MILD SLIDING SCALE PRN PRN Reason: Mild Correctional Scale Last Admin: 06/13/17 16:35 Dose: 5 unit Insulin Human Regular (Humulin R) 0 units SC .BEDTIME SLIDING SC PRN PRN Reason: Bedtime Correctional Scale Last Admin: 06/14/17 21:12 Dose: 4 unit Lactulose (Lactulose) 20 gm PO DAILYPRN PRN PRN Reason: Constipation Mineral Oil/White Petrolatum (Eucerin Cream) 0 gm TOP BIDPRN PRN PRN Reason: Dry Skin Miscellaneous Medication (Pharmacy To Dose) 1 each IVPB ONE PRN PRN Reason: Pharmacy to dose Stop: 07/13/17 11:16 Montelukast Sodium (Singulair) 10 mg PO DAILY [facility] Last Admin: 06/15/17 13:02 Dose: 10 mg Multivitamins (Theragran) 1 tab PO DAILY [facility] Last Admin: 06/15/17 13:02 Dose: 1 tab Nitroglycerin (Nitrostat) 0.4 mg PO Q5MIN PRN PRN Reason: Chest Pain Hold Vancomycin For (Level >20) 0 each FS .AT DIALYSIS [facility] Ropinirole HCl (Requip) 0.25 mg PO QPM [facility] Last Admin: 06/14/17 21:11 Dose: 0.25 mg Saccharomyces Boulardii (Florastor) 250 mg PO DAILY [facility] Last Admin: 06/15/17 13:02 Dose: 250 mg Senna (Senokot) 2 tab PO HSPRN PRN PRN Reason: Constipation Sevelamer Carbonate (Renvela) 800 mg PO TID-WM [facility] Last Admin: 06/15/17 13:02 Dose: 800 mg Sodium Chloride (Flush - Normal Saline) 10 ml IVF Q12HR [facility] Last Admin: 06/15/17 13:03 Dose: 10 ml Sodium Chloride (Flush - Normal Saline) 10 ml IVF PRN PRN PRN Reason: Saline Flush Tramadol HCl (Ultram) 50 mg PO Q8H PRN PRN Reason: Pain Last Admin: 06/14/17 14:42 Dose: 50 mg
--- NOTE | 2017-06-15 17:52 | PRG ---
DATE OF SERVICE: 06/15/2017 SUBJECTIVE: Patient was seen and examined at bedside and overnight events noted. Patient denies any shortness of breath or chest pain or palpitation. No history of nausea or vomitin g or diarrhea or fever or chills or cramps. OBJECTIVE: GENERAL: This is a well-built male in no apparent distress. VITAL SIGNS: Temperature 98.4, pulse 87, respiratory rate 20, blood pressure 167/73. HEENT: Atraumatic, normocephalic, Oral mucosa is moist NECK: Supple CARDIOVASCULAR: S1S2 heard, Rate and rhythm regular RESPIRATORY: Clear to auscultation GASTROINTESTINAL: Abdomen is soft MUSCULOSKELETAL : No tenderness, No edema DERMATOLOGIC : No skin rash NEUROLOGIC: Alert and awake and oriented X3, No focal neurologic deficits. Moving all the extremities . PSYCHIATRIC: Mood and affect normal. LABORATORY DATA: Potassium is 5.1, BUN 40, creatinine 6.0. ASSESSMENT AND PLAN: 1. End-stage renal disease with hyperkalemia. Potassium still remains elevated. Plan is to have 2 hours of dialysis. 2. Hyperkalemia. We will have dialysis for 2 hours. 3. Hyponatremia, limit fluid. 4. Hypertension. 5. Edema. We will remove fluid with dialysis. 6. We will have 2 hours of dialysis today.
[2017-06-15] MEDS: Insulin Regular 300 UNITS/3 ML VIAL SC PRN ×2 (18:16→21:33)
[2017-06-15] MEDS: traMADol HCl 50 MG TAB PO PRN (21:31)
[2017-06-15] MEDS: rOPINIRole HCl 0.25 MG TAB PO SCH (21:32)
[2017-06-15] MEDS: Famotidine 20 MG TAB PO SCH (21:32)
[2017-06-16] MEDS: Multivit, Therapeutic 1 TAB PO SCH (08:25)
[2017-06-16] MEDS: Saccharomyces boulardii 250 MG CAP PO SCH (08:25)
[2017-06-16] MEDS: Folic Acid 1 MG TAB PO SCH (08:25)
[2017-06-16] MEDS: Sevelamer Carbonate 800 MG TAB PO SCH ×3 (08:26→16:56)
[2017-06-16] MEDS: Aspirin 81 mg Enteric Coated Tablet PO SCH (08:26)
[2017-06-16] MEDS: Docusate 100 MG CAP PO SCH ×2 (08:26→19:58)
[2017-06-16] MEDS: Montelukast Sodium 10 mg Tablet PO SCH (08:26)
[2017-06-16] MEDS: Insulin Regular 300 UNITS/3 ML VIAL SC PRN ×3 (08:31→21:32)
--- NOTE | 2017-06-16 13:46 | PDOC.CTH ---
<Italia Rose - Last Filed: 06/16/17 13:48> Cardiology Progress Note - Subjective The pt seen and examined. No overnight events. No cardiac complaints. He walked with PT today without any cardiac complaints. The pt was able to answer and follow commands correctly; however, he cont. reporting that he would "go home and come back the hospital" for SHARON. - Objective Vital Signs Temp Pulse Resp BP Pulse Ox 06/16/17 11:20 99.5 F 93 17 163/70 H 91 L 06/16/17 08:00 100.3 F H 99 20 142/63 H 92 L 06/16/17 07:30 92 16 94 L 06/16/17 04:00 99.8 F H 98 18 153/65 H 98 06/16/17 03:13 92 L Weight 230 lb 2.601 oz 06/15/17 06/16/17 06/17/17 06:59 06:59 06:59 Intake Total 500 120 Output Total 100 Balance 400 120 - Physical Examination General/Neuro: alert & oriented x3 Neck: no JVD present Lungs: CTA Heart: RRR Abdomen: soft Extremities: other: (No edema) - Telemetry Telemetry Rhythm: SR - Labs Result Diagrams: 06/15/17 05:52 06/15/17 05:52 Troponin/CKMB Troponin I 0.951 ng/mL (< 0.028) H* 06/13/17 11:23 - Assessment/Plan 1. Sepsis with acute organ dysfunction/Staph epi. bacteremia - possible recurrent Endocarditis; Possible SHARON on 06/18/17; Cont Vancomycin/Meropenem; managed by PCP 2. Hx of Endocarditis - Possible recurrent endocarditis this time; possible SHARON on 06/18/17 3. CAD with hx of PCI - stable; cont. monitor on tele 4. HTN - stable with current medication; cont. monitor 5. ESRD, on HD - managed by special needs bus driver 6. DM type 2 - on ACHS SS Insulin; managed by PCP 7. Hyponatremia - Start Fluid restriction 1200ml/day 8. Current smoker - smoking cessation education given to the pt 9. 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 monitor MAR reviewed Review of Systems - Review of Systems Constitutional: reports: no symptoms reported EENTM: reports: no symptoms reported Respiratory: reports: no symptoms reported Cardiac (ROS): reports: no symptoms reported ABD/GI: reports: no symptoms reported : reports: no symptoms reported Musculoskeletal: reports: no symptoms reported Skin: reports: no symptoms reported Neurological: reports: no symptoms reported <Fabio Thorne - Last Filed: 06/16/17 19:27> Cardiology Progress Note - Objective Vital Signs Temp Pulse Resp BP Pulse Ox 06/16/17 18:49 94 L 06/16/17 15:20 99 F 91 19 138/61 92 L 06/16/17 11:20 99.5 F 93 17 163/70 H 91 L 06/16/17 08:00 100.3 F H 99 20 142/63 H 92 L 06/16/17 07:30 92 16 94 L Weight 230 lb 2.601 oz 06/15/17 06/16/17 06/17/17 06:59 06:59 06:59 Intake Total 500 120 Output Total 100 Balance 400 120 - Labs Result Diagrams: 06/15/17 05:52 06/15/17 05:52 Troponin/CKMB Troponin I 0.951 ng/mL (< 0.028) H* 06/13/17 11:23 - Assessment/Plan Pt. seen and eval. by me. I agree with the A/P by the RECORDING STUDIO SETUP WORKER. Plan for SHARON in AM to rule out recurrent endocarditis.
--- NOTE | 2017-06-16 14:19 | PDOC.PN ---
- Subjective Encounter Start Date: 06/16/17 Encounter Start Time: 11:00 Patient is seen today, he is Alert but remians confused, Discussed with patient son on phone, Explained about the possible procedure of SHARON in 1-2 days. - Objective Resuscitation Status: Resuscitation Status FULL:Full Resuscitation MAR Reviewed: Yes Vital Signs & Weight: Vital Signs (12 hours) Temp Pulse Resp BP Pulse Ox 06/16/17 11:20 99.5 F 93 17 163/70 H 91 L 06/16/17 08:00 100.3 F H 99 20 142/63 H 92 L 06/16/17 07:30 92 16 94 L 06/16/17 04:00 99.8 F H 98 18 153/65 H 98 06/16/17 03:13 92 L Weight Weight 230 lb 2.601 oz I&O: 06/15/17 06/16/17 06/17/17 06:59 06:59 06:59 Intake Total 500 120 Output Total 100 Balance 400 120 Result Diagrams: 06/15/17 05:52 06/15/17 05:52 Additional Labs: Accuchecks 06/16/17 06/16/17 06/15/17 12:11 06:09 20:47 POC Glucose 245 H 177 H 250 H 06/15/17 16:51 POC Glucose 231 H Radiology Reviewed by me: Yes Phys Exam - Physical Examination HEENT: PERRLA, moist MMs Neck: no nodes, no JVD Respiratory: no wheezing, no rales Cardiovascular: RRR, no significant murmur Gastrointestinal: soft, non-tender Musculoskeletal: no edema, pulses present Neurological: non-focal, normal sensation Dx/Plan (1) Anemia Code(s): D64.9 - ANEMIA, UNSPECIFIED Status: Chronic Qualifiers: Anemia type: due to chronic kidney disease Chronic kidney disease stage: on chronic dialysis Qualified Code(s): N18.6 - End stage renal disease; D63.1 - Anemia in chronic kidney disease; D63.1 - Anemia in chronic kidney disease; Z99.2 - Dependence on renal dialysis; Z99.2 - Dependence on renal dialysis; Z99.2 - Dependence on renal dialysis; Z99.2 - Dependence on renal dialysis (2) Hemodialysis patient Code(s): Z99.2 - DEPENDENCE ON RENAL DIALYSIS Status: Chronic (3) Hypoglycemia Code(s): E16.2 - HYPOGLYCEMIA, UNSPECIFIED Status: Resolved (4) Mild tricuspid regurgitation Code(s): I07.1 - RHEUMATIC TRICUSPID INSUFFICIENCY Status: Chronic (5) Diabetes mellitus Code(s): E11.9 - TYPE 2 DIABETES MELLITUS WITHOUT COMPLICATIONS Status: Chronic Qualifiers: Diabetes mellitus type: type 2 Diabetes mellitus complication status: with kidney complications Diabetes mellitus complication detail: with chronic kidney disease Chronic kidney disease stage: on chronic dialysis (6) End stage renal disease Code(s): N18.6 - END STAGE RENAL DISEASE Status: Chronic (7) Hyponatremia Code(s): E87.1 - HYPO-OSMOLALITY AND HYPONATREMIA Status: Chronic (8) Bacteremia due to Gram-positive bacteria Code(s): R78.81 - BACTEREMIA Status: Acute - Plan 1. Sepsis with Staph epi. bacteremia - possible recurrent Endocarditis; Possible SHARON on 06/18/17 by cardiology; Cont Vancomycin/Levofloxacin Renally dosed by pharmacy. 2. Hx of Endocarditis - Possible recurrent endocarditis ordered scecond set of Blood cuultures pending. 3. CAD with hx of PCI - stable; will cont. monitor on tele, Cardiology following. 4. HTN - stable with current medication; cont. monitor 5. ESRD, on HD - managed by self defense instructor 6. DM type 2 - on ACHS SS Insulin; Hypoglycemia resolved,. 7. Hyponatremia - Started Fluid restriction 1200ml/day, improving now. 8. Current smoker - smoking cessation education given to the pt 9. 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 monitor, Will follow nephrology recommedation. 10. DVT prophylaxis: heparin sc daily. - Discharge Day Encounter end time: 11:30 Review of Systems - Review of Systems Constitutional: weakness, malaise Eyes: negative: Pain, Vision Change, Conjunctivae Inflammation, Eyelid Inflammation, Redness, Other ENT: negative: Ear Pain, Ear Discharge, Nose Pain, Nose Discharge, Nose Congestion, Mouth Pain, Mouth Swelling, Throat Pain, Throat Swelling, Other Respiratory: negative: Cough, Dry, Shortness of Breath, Hemoptysis, SOB with Excertion, Pleuritic Pain, Sputum, Wheezing Cardiovascular: negative: chest pain, palpitations, orthopnea, paroxysmal nocturnal dyspnea, edema, light headedness, other Gastrointestinal: negative: Nausea, Vomiting, Abdominal Pain, Diarrhea, Constipation, Melena, Hematochezia, Other Genitourinary: negative: Dysuria, Frequency, Incontinence, Hematuria, Retention , Other Musculoskeletal: negative: Neck Pain, Shoulder Pain, Arm Pain, Back Pain, Hand Pain, Leg Pain, Foot Pain, Other Skin: negative: Rash, Lesions, Teto, Bruising, Other Neurological: Confusion. negative: Weakness, Numbness, Incoordination, Change in Speech, Seizures, Other - Medications/Allergies Allergies/Adverse Reactions: Allergies Allergy/AdvReac Type Severity Reaction Status Date / Time cefazolin sodium [From Ancef] Allergy Rash Verified 01/15/15 01:38 metronidazole [From Flagyl] Allergy Rash Verified 01/15/15 01:38 prednisone Allergy Verified 06/13/17 14:42 Medications: Current Medications Acetaminophen (Tylenol) 650 mg PO Q4H PRN PRN Reason: Headache/Fever or Mild Pain Last Admin: 06/15/17 21:32 Dose: 650 mg Albuterol/Ipratropium (Duoneb) 3 ml NEB [id number] [facility] Last Admin: 06/16/17 13:32 Dose: Not Given Albuterol/Ipratropium (Duoneb) 3 ml NEB [id number] PRN PRN Reason: SOB &/or Wheezing Aspirin (Ecotrin) 81 mg PO DAILY [facility] Last Admin: 06/16/17 08:26 Dose: 81 mg Bisacodyl (Dulcolax) 10 mg OR Q24H PRN PRN Reason: Constipation Dextrose/Water (Dextrose 50%) 25 gm SLOW IVP PRN PRN PRN Reason: Hypoglycemia Docusate Sodium (Colace) 100 mg PO BID [facility] Last Admin: 06/16/17 08:26 Dose: 100 mg Famotidine (Pepcid) 20 mg PO QPM [facility] Last Admin: 06/15/17 21:32 Dose: 20 mg Folic Acid (Folvite) 1 mg PO DAILY [facility] Last Admin: 06/16/17 08:25 Dose: 1 mg Glucagon (Glucagon) 1 mg IM PRN PRN PRN Reason: Hypoglycemia Hydralazine HCl (Apresoline) 10 mg SLOW IVP Q4H PRN PRN Reason: SBP Greater Than 180 Dextrose/Water (D5w) 1,000 mls @ 0 mls/hr IV .Q0M PRN; As Directed PRN Reason: Hypoglycemia Vancomycin HCl 1.25 gm/ Sodium (Chloride) 250 mls @ 166.667 mls/hr IVPB WILLCALL [facility] Vancomycin HCl 1 gm/ Device 200 mls @ 200 mls/hr IVPB WILLCALL [facility] Vancomycin HCl 750 mg/ Sodium (Chloride) 250 mls @ 250 mls/hr IVPB WILLCALL [facility] Last Admin: 06/15/17 10:52 Dose: 250 mls Vancomycin HCl 500 mg/ Sodium (Chloride) 100 mls @ 100 mls/hr IVPB WILLCALL [facility] Levofloxacin 500 mg/ Device 100 mls @ 100 mls/hr IVPB 1400 [facility] Stop: 06/16/17 17:00 Last Admin: 06/16/17 14:09 Dose: 100 mls Levofloxacin 250 mg/ Device 50 mls @ 50 mls/hr IVPB Q2D@1400 [facility] Insulin Human Regular (Humulin R) 0 units SC .MILD SLIDING SCALE PRN PRN Reason: Mild Correctional Scale Last Admin: 06/16/17 13:25 Dose: 3 unit Insulin Human Regular (Humulin R) 0 units SC .BEDTIME SLIDING SC PRN PRN Reason: Bedtime Correctional Scale Last Admin: 06/15/17 21:33 Dose: 2 unit Lactulose (Lactulose) 20 gm PO DAILYPRN PRN PRN Reason: Constipation Mineral Oil/White Petrolatum (Eucerin Cream) 0 gm TOP BIDPRN PRN PRN Reason: Dry Skin Miscellaneous Medication (Pharmacy To Dose) 1 each IVPB ONE PRN PRN Reason: Pharmacy to dose Stop: 07/13/17 11:16 Montelukast Sodium (Singulair) 10 mg PO DAILY [facility] Last Admin: 06/16/17 08:26 Dose: 10 mg Multivitamins (Theragran) 1 tab PO DAILY [facility] Last Admin: 06/16/17 08:25 Dose: 1 tab Nitroglycerin (Nitrostat) 0.4 mg PO Q5MIN PRN PRN Reason: Chest Pain Hold Vancomycin For (Level >20) 0 each FS .AT DIALYSIS [facility] Ropinirole HCl (Requip) 0.25 mg PO QPM [facility] Last Admin: 06/15/17 21:32 Dose: 0.25 mg Saccharomyces Boulardii (Florastor) 250 mg PO DAILY [facility] Last Admin: 06/16/17 08:25 Dose: 250 mg Senna (Senokot) 2 tab PO HSPRN PRN PRN Reason: Constipation Sevelamer Carbonate (Renvela) 800 mg PO TID-[facility] Last Admin: 06/16/17 11:38 Dose: 800 mg Sodium Chloride (Flush - Normal Saline) 10 ml IVF Q12HR [facility] Last Admin: 06/16/17 08:30 Dose: 10 ml Sodium Chloride (Flush - Normal Saline) 10 ml IVF PRN PRN PRN Reason: Saline Flush Last Admin: 06/16/17 14:10 Dose: 10 ml Tramadol HCl (Ultram) 50 mg PO Q8H PRN PRN Reason: Pain Last Admin: 06/15/17 21:31 Dose: 50 mg
--- NOTE | 2017-06-16 18:50 | PRG ---
DATE OF SERVICE: 06/16/2017 SUBJECTIVE: Patient was seen and examined at bedside and overnight events noted. Patient denies any shortness of breath or chest pain or palpitation. No history of nausea or vomiting or diarrhea or f ever or chills or cramps. OBJECTIVE: GENERAL: This is a well-built male, in no apparent distress. VITAL SIGNS: Temperature 99.5, pulse 93, respiratory rate 16, blood pressure 163/70. HEENT: Atraumatic, normocephalic, oral mucosa is moist. NECK: Supple. CARDIOVASCULAR: S1, S2 heard, rate and rhythm regular. RESPIRATORY: Clear to auscultation. GASTROINTESTINAL: Abdomen is soft. MUSCULOSKELETAL: No tenderness, no edema. DERMATOLOGIC: No skin rash. NEUROLOGIC: Alert and awake and oriented x3. No focal neurologic deficits. Moving all the extremit ies. PSYCHIATRIC: Mood and affect normal. LABORATORY DATA: Not done today. ASSESSMENT AND PLAN: 1. End-stage renal disease. We will continue on dialysis. 2. Hyperkalemia. 3. Hyponatremia. 4. Hypertension. 5. Edema. Plan is to continue on dialysis as tolerated.
[2017-06-16] MEDS: rOPINIRole HCl 0.25 MG TAB PO SCH (19:58)
[2017-06-16] MEDS: Famotidine 20 MG TAB PO SCH (19:58)
[2017-06-16] MEDS: traMADol HCl 50 MG TAB PO PRN (20:00)
[2017-06-16] MEDS: Meropenem 500 MG, Admixture Fee 1 EACH in Sterile Water 10 ML SLOW IVP SCH (20:51)
[2017-06-16] MEDS: Acetaminophen 325 MG TAB PO PRN (21:32)
[2017-06-17 08:28] LABS: Vancomycin, Trough 12.4 ug/mL
[2017-06-17] MEDS: Acetaminophen 325 MG TAB PO PRN ×2 (08:53→18:53)
[2017-06-17] MEDS: Vancomycin HCl 750 MG in Sodium Chloride 0.9% 250 ML 250 ML IVPB SCH (09:32)
--- NOTE | 2017-06-17 11:23 | PDOC.PN ---
- Subjective Encounter Start Date: 06/17/17 Encounter Start Time: 09:15 Patient is seen today, alert and oriented, at HD, expalined to him plan for SHARON today and will moniot him overnight to look for any growth in blood cultures. - Objective Resuscitation Status: Resuscitation Status FULL:Full Resuscitation MAR Reviewed: Yes Vital Signs & Weight: Vital Signs (12 hours) Temp Pulse Resp BP Pulse Ox 06/17/17 04:00 99.0 F 95 18 167/72 H 93 L Weight Weight 233 lb 11.04 oz I&O: 06/16/17 06/17/17 06/18/17 06:59 06:59 06:59 Intake Total 520 Balance 520 Result Diagrams: 06/15/17 05:52 06/15/17 05:52 Additional Labs: Accuchecks 06/17/17 06/16/17 06/16/17 06:35 21:06 17:31 POC Glucose 168 H 243 H 169 H 06/16/17 12:11 POC Glucose 245 H Phys Exam - Physical Examination HEENT: PERRLA, moist MMs Neck: no nodes, no JVD Respiratory: no wheezing, no rales Cardiovascular: RRR, no significant murmur Gastrointestinal: soft, non-tender Musculoskeletal: no edema, pulses present Dx/Plan (1) Anemia Code(s): D64.9 - ANEMIA, UNSPECIFIED Status: Chronic Qualifiers: Anemia type: due to chronic kidney disease Chronic kidney disease stage: on chronic dialysis Qualified Code(s): N18.6 - End stage renal disease; D63.1 - Anemia in chronic kidney disease; D63.1 - Anemia in chronic kidney disease; Z99.2 - Dependence on renal dialysis; Z99.2 - Dependence on renal dialysis; Z99.2 - Dependence on renal dialysis; Z99.2 - Dependence on renal dialysis (2) Hemodialysis patient Code(s): Z99.2 - DEPENDENCE ON RENAL DIALYSIS Status: Chronic (3) Mild tricuspid regurgitation Code(s): I07.1 - RHEUMATIC TRICUSPID INSUFFICIENCY Status: Chronic (4) Diabetes mellitus Code(s): E11.9 - TYPE 2 DIABETES MELLITUS WITHOUT COMPLICATIONS Status: Chronic Qualifiers: Diabetes mellitus type: type 2 Diabetes mellitus complication status: with kidney complications Diabetes mellitus complication detail: with chronic kidney disease Chronic kidney disease stage: on chronic dialysis (5) End stage renal disease Code(s): N18.6 - END STAGE RENAL DISEASE Status: Chronic (6) Hyponatremia Code(s): E87.1 - HYPO-OSMOLALITY AND HYPONATREMIA Status: Chronic (7) Bacteremia due to Gram-positive bacteria Code(s): R78.81 - BACTEREMIA Status: Acute - Plan cont current plan of care, plan discussed w/ family, continue antibiotics, PT/OT , social service agency director 1. Sepsis with Staph epi. bacteremia - possible recurrent Endocarditis; SHARON today by cardiology; Cont Vancomycin/Levofloxacin Renally dosed by pharmacy. 2. Hx of Endocarditis - Possible recurrent endocarditis ordered scecond set of Blood cuultures no growth, will monitored one more day, if SHARON negative and no Blood cultures growth will dicuss with ID about the plan. 3. CAD with hx of PCI - stable; will cont. monitor on tele, Cardiology following. 4. HTN - stable with current medication; cont. monitor 5. ESRD, on HD - managed by paper rewinder 6. DM type 2 - on ACHS SS Insulin; Hypoglycemia resolved,. 7. Hyponatremia - Started Fluid restriction 1200ml/day, improving now. 8. Current smoker - smoking cessation education given to the pt 9. 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 monitor, Will follow nephrology recommedation. 10. DVT prophylaxis: heparin sc daily. - Discharge Day Encounter end time: 09:45 Review of Systems - Review of Systems Constitutional: weakness Eyes: negative: Pain, Vision Change, Conjunctivae Inflammation, Eyelid Inflammation, Redness, Other ENT: negative: Ear Pain, Ear Discharge, Nose Pain, Nose Discharge, Nose Congestion, Mouth Pain, Mouth Swelling, Throat Pain, Throat Swelling, Other Respiratory: negative: Cough, Dry, Shortness of Breath, Hemoptysis, SOB with Excertion, Pleuritic Pain, Sputum, Wheezing Cardiovascular: negative: chest pain, palpitations, orthopnea, paroxysmal nocturnal dyspnea, edema, light headedness, other Gastrointestinal: negative: Nausea, Vomiting, Abdominal Pain, Diarrhea, Constipation, Melena, Hematochezia, Other Genitourinary: negative: Dysuria, Frequency, Incontinence, Hematuria, Retention , Other Musculoskeletal: negative: Neck Pain, Shoulder Pain, Arm Pain, Back Pain, Hand Pain, Leg Pain, Foot Pain, Other Skin: negative: Rash, Lesions, Teto, Bruising, Other Neurological: negative: Weakness, Numbness, Incoordination, Change in Speech, Confusion, Seizures, Other - Medications/Allergies Allergies/Adverse Reactions: Allergies Allergy/AdvReac Type Severity Reaction Status Date / Time cefazolin sodium [From Ancef] Allergy Rash Verified 01/15/15 01:38 metronidazole [From Flagyl] Allergy Rash Verified 01/15/15 01:38 prednisone Allergy Verified 06/13/17 14:42 Medications: Current Medications Acetaminophen (Tylenol) 650 mg PO Q4H PRN PRN Reason: Headache/Fever or Mild Pain Last Admin: 06/17/17 08:53 Dose: 650 mg Albuterol/Ipratropium (Duoneb) 3 ml NEB [id number] [facility] Last Admin: 06/17/17 07:02 Dose: Not Given Albuterol/Ipratropium (Duoneb) 3 ml NEB [id number] PRN PRN Reason: SOB &/or Wheezing Aspirin (Ecotrin) 81 mg PO DAILY [facility] Last Admin: 06/16/17 08:26 Dose: 81 mg Bisacodyl (Dulcolax) 10 mg DC Q24H PRN PRN Reason: Constipation Dextrose/Water (Dextrose 50%) 25 gm SLOW IVP PRN PRN PRN Reason: Hypoglycemia Docusate Sodium (Colace) 100 mg PO BID [facility] Last Admin: 06/16/17 19:58 Dose: 100 mg Famotidine (Pepcid) 20 mg PO QPM [facility] Last Admin: 06/16/17 19:58 Dose: 20 mg Folic Acid (Folvite) 1 mg PO DAILY [facility] Last Admin: 06/16/17 08:25 Dose: 1 mg Glucagon (Glucagon) 1 mg IM PRN PRN PRN Reason: Hypoglycemia Hydralazine HCl (Apresoline) 10 mg SLOW IVP Q4H PRN PRN Reason: SBP Greater Than 180 Dextrose/Water (D5w) 1,000 mls @ 0 mls/hr IV .Q0M PRN; As Directed PRN Reason: Hypoglycemia Vancomycin HCl 1.25 gm/ Sodium (Chloride) 250 mls @ 166.667 mls/hr IVPB [facility] Vancomycin HCl 1 gm/ Device 200 mls @ 200 mls/hr IVPB [facility] Vancomycin HCl 750 mg/ Sodium (Chloride) 250 mls @ 250 mls/hr IVPB WILLCALL [facility] Last Admin: 06/17/17 09:32 Dose: 250 mls Vancomycin HCl 500 mg/ Sodium (Chloride) 100 mls @ 100 mls/hr IVPB WILLCALL [facility] Levofloxacin 250 mg/ Device 50 mls @ 50 mls/hr IVPB Q2D@1400 [facility] Insulin Human Regular (Humulin R) 0 units SC .MILD SLIDING SCALE PRN PRN Reason: Mild Correctional Scale Last Admin: 06/16/17 13:25 Dose: 3 unit Insulin Human Regular (Humulin R) 0 units SC .BEDTIME SLIDING SC PRN PRN Reason: Bedtime Correctional Scale Last Admin: 06/16/17 21:32 Dose: 2 unit Lactulose (Lactulose) 20 gm PO DAILYPRN PRN PRN Reason: Constipation Mineral Oil/White Petrolatum (Eucerin Cream) 0 gm TOP BIDPRN PRN PRN Reason: Dry Skin Miscellaneous Medication (Pharmacy To Dose) 1 each IVPB ONE PRN PRN Reason: Pharmacy to dose Stop: 07/13/17 11:16 Montelukast Sodium (Singulair) 10 mg PO DAILY [facility] Last Admin: 06/16/17 08:26 Dose: 10 mg Multivitamins (Theragran) 1 tab PO DAILY [facility] Last Admin: 06/16/17 08:25 Dose: 1 tab Nitroglycerin (Nitrostat) 0.4 mg PO Q5MIN PRN PRN Reason: Chest Pain Hold Vancomycin For (Level >20) 0 each FS .AT DIALYSIS [facility] Ropinirole HCl (Requip) 0.25 mg PO QPM [facility] Last Admin: 06/16/17 19:58 Dose: 0.25 mg Saccharomyces Boulardii (Florastor) 250 mg PO DAILY [facility] Last Admin: 06/16/17 08:25 Dose: 250 mg Senna (Senokot) 2 tab PO HSPRN PRN PRN Reason: Constipation Sevelamer Carbonate (Renvela) 800 mg PO TID-[facility] Last Admin: 06/16/17 16:56 Dose: Not Given Sodium Chloride (Flush - Normal Saline) 10 ml IVF Q12HR [facility] Last Admin: 06/16/17 19:58 Dose: 10 ml Sodium Chloride (Flush - Normal Saline) 10 ml IVF PRN PRN PRN Reason: Saline Flush Last Admin: 06/16/17 14:10 Dose: 10 ml Tramadol HCl (Ultram) 50 mg PO Q8H PRN PRN Reason: Pain Last Admin: 06/16/17 20:00 Dose: 50 mg
[2017-06-17] MEDS ORDERED: Lidocaine 1% PF 5 ML VIAL ONE (12:11)
[2017-06-17] MEDS ORDERED: Propofol 200 MG/20 ML VIAL ONE (12:11)
[2017-06-17] MEDS ORDERED: PHENYLEPHRINE-NS 100 MCG/ML 10 ML SYRINGE ONE (12:11)
--- NOTE | 2017-06-17 12:26 | PDOC.CTH ---
Cardiology Progress Note - Subjective pt. seen and eval. No new events overnight. No complaints.SHARON this AM after dialysis. - Objective Vital Signs Temp Pulse Resp BP Pulse Ox 06/17/17 04:00 99.0 F 95 18 167/72 H 93 L Weight 233 lb 11.04 oz 06/16/17 06/17/17 06/18/17 06:59 06:59 06:59 Intake Total 520 Balance 520 - Physical Examination General/Neuro: alert & oriented x3 Lungs: other: (few scattered left lower rales.) Heart: PMI normal, RRR Abdomen: no HSM, NT/ND - Labs Result Diagrams: 06/15/17 05:52 06/15/17 05:52 Troponin/CKMB Troponin I 0.951 ng/mL (< 0.028) H* 06/13/17 11:23 - Assessment/Plan 1. Sepsis with acute organ dysfunction/Staph epi. bacteremia - possible recurrent Endocarditis; SHARON today , 06/17/17 confirms vegetation on the post. MV leaflet.( see dictated report); Cont Vancomycin/Meropenem; managed by PCP 2. Hx of Endocarditis - Recurrent endocarditis.MV vegetation. No evidence of bioprosthetic AV vegetation or TV vegetation. 3. CAD with hx of PCI - stable; cont. monitor on tele 4. HTN - stable with current medication; cont. monitor 5. ESRD, on HD - managed by psych nurse 6. DM type 2 - on ACHS SS Insulin; managed by PCP 7. Hyponatremia - Start Fluid restriction 1200ml/day 8. Current smoker - smoking cessation education given to the pt 9. 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 monitor MAR reviewed Review of Systems - Review of Systems Respiratory: reports: no symptoms reported Cardiac (ROS): reports: no symptoms reported ABD/GI: reports: no symptoms reported : reports: no symptoms reported Musculoskeletal: reports: no symptoms reported Neurological: reports: no symptoms reported
[2017-06-17] MEDS: Sevelamer Carbonate 800 MG TAB PO SCH ×3 (13:02→16:28)
[2017-06-17] MEDS: Saccharomyces boulardii 250 MG CAP PO SCH (13:03)
[2017-06-17] MEDS: Docusate 100 MG CAP PO SCH ×2 (13:03→21:37)
[2017-06-17] MEDS: Montelukast Sodium 10 mg Tablet PO SCH (13:03)
[2017-06-17] MEDS: Folic Acid 1 MG TAB PO SCH (13:03)
[2017-06-17] MEDS: Aspirin 81 mg Enteric Coated Tablet PO SCH (13:03)
[2017-06-17] MEDS: Multivit, Therapeutic 1 TAB PO SCH (13:04)
[2017-06-17] MEDS: traMADol HCl 50 MG TAB PO PRN ×2 (13:09→21:26)
[2017-06-17] MEDS ORDERED: Morphine 4 MG/ML VIAL SLOW IVP PRN (15:36)
--- NOTE | 2017-06-17 15:48 | ECHO ---
TRANSESOPHAGEAL ECHOCARDIOGRAM: INDICATION FOR PROCEDURE: This is a 61-year-old patient with a history of endocarditis and status post aortic valve replacement with end-stage renal disease on hemodialysis, A transesophageal echocardiogram was performed to rule out evidence of progression or continuation of bacterial endocarditis. DATE OF PROCEDURE: 06/17/17. IMPRESSION: 1. Normal left ventricular systolic function, ejection fraction was 60-65%. 2. 2.0 cm vegetation noted on the posterior mitral valve leaflet, which is mobile but still attached to the posterior leaflet. 3. Bioprosthetic aortic valve with good position with no evidence of vegetations. 4. Tricuspid valve normal in structure with no evidence of vegetations. 5. Mild to moderate tricuspid valve regurgitation. 6. Mild to moderate mitral valve regurgitation. The patient tolerated the procedure well without difficulties or complications. He was taken to the recovery area where he underwent short-acting propofol for the procedure and the transesophageal probe was easily passed without difficulties or complications. POS: DONAVON
[2017-06-17] MEDS: HYDROcodone/Acetaminophen 5/325 mg Tablet PO PRN ×2 (16:27→22:58)
--- NOTE | 2017-06-17 17:08 | PRG ---
DATE OF SERVICE: 06/17/2017 SUBJECTIVE: Patient was seen and examined at bedside and overnight events noted. Patient denies any shortness of breath or chest pain or palpitation. No history of nausea or vomiting or diarrhea or f ever or chills or cramps. OBJECTIVE: GENERAL: This is an obese male in no apparent distress. VITAL SIGNS: Temperature 99.4, pulse 94, respiratory rate 18, blood pressure 139/89. HEENT: Atraumatic, normocephalic. Oral mucosa is moist. NECK: Supple. CARDIOVASCULAR: S1, S2 heard. Rate and rhythm regular. RESPIRATORY: Clear to auscultation. GASTROINTESTINAL: Abdomen is soft. MUSCULOSKELETAL: No tenderness. No edema. DERMATOLOGIC: No skin rash. NEUROLOGIC: Alert and awake and oriented x3. No focal neurologic deficits. Moving all the extremiti es. PSYCHIATRIC: Mood and affect normal. LABORATORY DATA: Not done. ASSESSMENT AND PLAN: 1. End-stage renal disease on hemodialysis. We will continue on dialysis as tolerated. 2. Edema, controlled. 3. Hypertension. 4. Fever with endocarditis, SHARON today. 5. Anemia. We will monitor. 6. Follow with Cardiology with SHARON results. We will follow.
[2017-06-17] MEDS: Famotidine 20 MG TAB PO SCH (21:27)
[2017-06-17] MEDS: rOPINIRole HCl 0.25 MG TAB PO SCH (21:27)
[2017-06-17] MEDS: Nitroglycerin 0.4 MG TAB (25 Tab Bottle) PO PRN ×2 (23:00→23:45)
[2017-06-18] MEDS: Nitroglycerin 0.4 MG TAB (25 Tab Bottle) PO PRN (00:01)
[2017-06-18] MEDS: Acetaminophen 325 MG TAB PO PRN (01:43)
[2017-06-18] MEDS: HYDROcodone/Acetaminophen 5/325 mg Tablet PO PRN ×3 (02:47→15:40)
[2017-06-18] MEDS: traMADol HCl 50 MG TAB PO PRN ×2 (05:10→18:06)
[2017-06-18 05:38] LABS: Anion Gap 17 mmol/L (10-20); BUN (Urea Nitrogen) 38 mg/dL (8.4-25.7); Calc. Creatinine Clearance 20 mL/min (70-130); Calcium 8.4 mg/dL (7.8-10.44); Carbon Dioxide 28 mmol/L (23-31); Chloride 88 mmol/L (98-107); Estimated GFR-MDRD 10; Glucose 173 mg/dL (80-115); Potassium 4.2 mmol/L (3.5-5.1); Sodium 129 mmol/L (136-145)
[2017-06-18 06:04] LABS: Band 16 % (5-11); Hemoglobin 9.1 g/dL (14.0-18.0); Lymphocytes 7 % (21-51); MDiff Complete? YES; Mean Corpuscular HGB CONC 31.2 g/dL (32.0-36.0); Mean Corpuscular Hemoglobin 28.8 pg (27.0-31.0); Mean Corpuscular Volume 92.5 fl (80.0-94.0); Mean Platelet Volume 10.9 fL (7.4-10.4); Monocytes 12 % (0-10); Neutrophil 65 % (42-75); Nucleated RBC 1 % (0); PLT Morphology Comment Appears Decreased; Platelet Count 55 thou/uL (130-400); RBC Distribution Width 17.4 % (11.5-14.5); Red Blood Cell (RBC) Count 3.16 mill/uL (4.70-6.10); White Blood Cell (WBC) Count 5.6 thou/uL (4.8-10.8)
[2017-06-18] MEDS: Folic Acid 1 MG TAB PO SCH (08:07)
[2017-06-18] MEDS: Saccharomyces boulardii 250 MG CAP PO SCH (08:07)
[2017-06-18] MEDS: Docusate 100 MG CAP PO SCH (08:08)
[2017-06-18] MEDS: Aspirin 81 mg Enteric Coated Tablet PO SCH (08:08)
[2017-06-18] MEDS: Multivit, Therapeutic 1 TAB PO SCH (08:08)
[2017-06-18] MEDS: Montelukast Sodium 10 mg Tablet PO SCH (08:08)
[2017-06-18] MEDS: Sevelamer Carbonate 800 MG TAB PO SCH ×4 (08:08→18:48)
--- NOTE | 2017-06-18 14:07 | PDOC.CTH ---
Cardiology Progress Note - Subjective He is doing well. No new issues or concerns. - Objective Vital Signs Temp Pulse Resp BP BP BP Pulse Ox 06/18/17 12:54 98 F 90 16 126/58 L 126/61 128/60 92 L 06/18/17 07:56 98.1 F 99 16 181/76 H 180/74 H 186/80 H 94 L 06/18/17 04:00 97.6 F 93 20 126/60 93 L Weight 229 lb 06/17/17 06/18/17 06/19/17 06:59 06:59 06:59 Intake Total 520 960 Output Total 0 Balance 520 960 - Physical Examination General/Neuro: alert & oriented x3, NAD Neck: no JVD present Lungs: unlabored respirations Heart: RRR Abdomen: NT/ND Extremities: other: (no edema.) - Telemetry Telemetry Rhythm: NSR - Labs Result Diagrams: 06/18/17 04:46 06/18/17 04:46 Troponin/CKMB Troponin I 0.951 ng/mL (< 0.028) H* 06/13/17 11:23 - Assessment/Plan 1. Sepsis with acute organ dysfunction/Staph epi. bacteremia 2. Endocarditis of mitral valve, posterior MV leaflet. No evidence of bioprosthetic AV vegetation or TV vegetation. 3. CAD with hx of PCI, stable 4. HTN 5. ESRD, on HD 6. DM type 2 7. Hyponatremia 8. Current smoker - smoking cessation education. 9. Anemia of chronic disease. PLAN: - long term care administrator IV abx per ID. - May discharge home any tome from cardiac perspective. - Follow up with his personal Balance Wheel Screw Hole Tapper in [place] in 2 to 4 weeks. - Will need repeat echocardiogram in 2 to 4 weeks or if clinical worsening. - Will sign out. Please call with any questions.
--- NOTE | 2017-06-18 14:32 | PRG ---
DATE OF SERVICE: 06/18/2017 SUBJECTIVE: The patient is sitting up by the bedside and feeling better. No headaches. Little bit of chest pain when he takes a deep breath. This developed after the procedure for the transesophagea l echocardiogram. No abdominal pain or diarrhea. No genitourinary symptoms. OBJECTIVE: VITAL SIGNS: His T-max 101.5 on 06/17/2017. GENERAL: He is awake. LUNGS: Clear. S1, S2, regular rate. ABDOMEN: Soft and not distended. EXTREMITIES: Moves all extremities equally. LABORATORY DATA: White cell count 5.6, hemoglobin 9.1, platelets of 55,000. Sodium 129, creatinine 5.67, CO2 28. Microbiology: Staph epidermidis retrieved transesophageal echocardiogram showed a bio prosthetic valve. A 2 cm vegetation noted in the posterior mitral valve leaflet, mobile but still at tached to the posterior leaflet. Currently, the patient is on vancomycin sliding scale. 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 PLAN: Now is to continue vancomycin sliding scale until 07/29/2017. [facility]. Follow up echocardiogram.
--- NOTE | 2017-06-18 14:50 | DIS ---
DATE OF ADMISSION: 06/13/2017 DATE OF DISCHARGE: 06/18/2017 ADMITTING DIAGNOSES: Sepsis with endocarditis. DISCHARGE DIAGNOSES: Sepsis with endocarditis. SECONDARY DIAGNOSES 1. Hyperkalemia. 2. Anemia of chronic blood loss. 3. Type 2 diabetes mellitus. 4. History of cirrhosis with portal hypertension. 5. Secondary hyperparathyroidism. 6. Hypertension. CONSULTANTS: Involved in this care are, Cardiology, Dr. Thorne; Nephrology, Dr. New Stahl; Infec tious Disease, Dr. Andre Rowland. PROCEDURE: Done during this admission is transesophageal echo showing signs suggestive of endocardit is. HISTORY OF PRESENT ILLNESS AND HOSPITAL COURSE: In brief, this is a 61-year-old gentleman, who has a known history of end-stage renal disease, on hemodialysis, and sees Dr. Stahl. Patient a lsdanni has a history of cirrhosis, portal hypertension, history of coronary artery disease. He went to the hospital in [place] with hypertension and generalized weakness and fatigue and he missed one day of dialysis, and he developed a productive cough with no fever or chills and no chest pain and came t o the ER with a heart rate of 133 with atrial fibrillation, which also caused elevated troponin level s. The patient was found to have a fever of 102 and also had elevated potassium levels. The patient was immediately admitted to the hospital and was started on hemodialysis, and also on IV antibiotics with vancomycin. Patient was suspicious for endocarditis, because of his previous history of endoca rditis and fever and persistent murmur. So, Cardiology was consulted, because of the elevated tropon ins and this HSARON, as transthoracic echo was normal, but patient was started growing coag-negative Sta ph epidermidis. So, Infectious Disease was consulted, who suggested the patient should be started on vancomycin for at least 6 weeks during dialysis. During the workup for endocarditis, SHARON was positi ve. So, patient was continued on IV vancomycin as an outpatient during the dialysis. Dr. Rowland from Infectious Disease would follow along with the patient. During this hospitalization, the patient also had a drop in his hemoglobin, so he received 1 unit of blood transfusion. The patient is discharged home in stable condition. PHYSICAL EXAMINATION: On day of discharge, VITAL SIGNS: Blood pressure 126/58, heart rate is 90, respiratory rate of 16, saturation 92% on room air. GENERAL: The patient is moderately built and moderately nourished, does not appear to be in acute di stress. CARDIOVASCULAR: S1, S2 normal. No murmurs, no rubs, and no gallops. LUNGS: Bilateral air entry was equal. No wheezing, no crackles. ABDOMEN: Soft, nontender, no guarding, no rebound tenderness. Bowel sounds normal. MUSCULOSKELETAL: No calf tenderness or pedal edema. No joint tenderness, no joint swelling. DISCHARGE MEDICATIONS: 1. Aspirin 81 mg daily. 2. Atorvastatin 10 mg p.o. daily. 3. Calcium acetate 667 mg capsule, takes 1334 mg p.o. t.i.d. 4. Ferrous sulfate 325 p.o. daily. 5. Folic acid 1 mg daily. 6. Hydrocodone. 7. Montelukast 10 mg daily. 8. Ropinirole 0.25 mg tablet, takes in the evening. 9. Sevelamer 800 mg p.o. t.i.d. 10. Tramadol. 11. Vancomycin 1 gram IV during dialysis, continue this for 6 weeks. DISCHARGE INSTRUCTIONS: Continue activity as tolerated. Advised to follow up with Infectious Diseas e as scheduled previously. Advised to follow up with Cardiology in 4 weeks to repeat the echo. Foll ow up with the primary care physician in 1-2 weeks. Advised to return to the ER if the patient develops any worsening chest pain or shortness of breath. I spent 35 minutes with this patient on the day of discharge.
[2017-06-18 15:54] VITALS: BP 137/62; TEMP 97
--- NOTE | 2017-06-18 18:50 | PRG ---
DATE OF SERVICE: 06/18/2017 SUBJECTIVE: Patient was seen and examined at bedside and overnight events noted. Patient denies any shortness of breath or chest pain or palpitation. No history of nausea or vomiting or diarrhea or f ever or chills or cramps. OBJECTIVE: GENERAL: This is a well-built male in no apparent distress. VITAL SIGNS: Temperature 98.0, pulse 90, respiratory rate 16, blood pressure 128/60. HEENT: Atraumatic, normocephalic. Oral mucosa is moist. NECK: Supple. CARDIOVASCULAR: S1, S2 heard. Rate and rhythm regular. RESPIRATORY: Clear to auscultation. GASTROINTESTINAL: Abdomen is soft. MUSCULOSKELETAL: No tenderness. No edema. DERMATOLOGIC: No skin rash. NEUROLOGIC: Alert and awake and oriented x3. No focal neurologic deficits. Moving all the extremiti es. PSYCHIATRIC: Mood and affect normal. LABORATORY DATA: Potassium is 4.2, BUN is 30, and creatinine is 5.6. ASSESSMENT AND PLAN: 1. End-stage renal disease. Continue on hemodialysis, tolerated. 2. Edema, controlled. 3. Hypertension. 4. Endocarditis. Continue on antibiotics. Follow ID recommendation possibly antibody. 5. Anemia. 6. Plan is to continue on dialysis as tolerated. Continue antibiotics.
--- NOTE | 2017-06-18 20:49 | RAD ---
EXAM: CHEST TWO VIEWS 06/18/17 HISTORY: Chest pain after SHARON. COMPARISON: None. FINDINGS: The heart is enlarged. Pulmonary vessels are slightly prominent. There are diffuse interstitial opaci ties. Small left sided and right sided pleural effusions. No pneumothorax. IMPRESSION: 1. Cardiomegaly. 2. Interstitial opacities with pulmonary vascular prominence. 3. Congestive heart failure. POS: [facility]
--- NOTE | 2017-06-27 19:27 | EKG ---
Test Reason : CHEST PAIN Blood Pressure : / mmHG Vent. Rate : 091 BPM Atrial Rate : 091 BPM P-R Int : 178 ms QRS Dur : 106 ms QT Int : 410 ms P-R-T Axes : 032 -30 054 degrees QTc Int : 504 ms Sinus rhythm with occasional Premature ventricular complexes Possible Left atrial enlargement Left axis deviation Left ventricular hypertrophy Prolonged QT Abnormal ECG When compared with ECG of 13-JUN-2017 06:05, Sinus rhythm has replaced Atrial fibrillation Left anterior fascicular block is no longer Present Confirmed by SAPNA RONQUILLO (2) on 06/27/2017 7:26:47 PM Referred By: DEEPA Confirmed By:SAPNA RONQUILLO
== END 2017-06-18 19:18 | disposition home or self-care (01) | DRG 871 ==
LOC: ERS 05:59 → 2NO 10:08
PROVIDERS: ADMIT Family Medicine; ATTEND Family Medicine
PROC: 5A1D70Z Performance of Urinary Filtration, Intermittent, Less than 6 Hours Per Day (ICD-10-PCS; principal; 2017-06-14)
PROC: 5A1D70Z Performance of Urinary Filtration, Intermittent, Less than 6 Hours Per Day (ICD-10-PCS; 2017-06-15)
PROC: 5A1D70Z Performance of Urinary Filtration, Intermittent, Less than 6 Hours Per Day (ICD-10-PCS; 2017-06-16)
PROC: 5A1D70Z Performance of Urinary Filtration, Intermittent, Less than 6 Hours Per Day (ICD-10-PCS; 2017-06-17)
PROC: B245ZZ4 Ultrasonography of Left Heart, Transesophageal (ICD-10-PCS; 2017-06-17)
DX: A41.1 Sepsis due to other specified staphylococcus (principal); N18.6 End stage renal disease; I33.0 Acute and subacute infective endocarditis; G92 Toxic encephalopathy; E11.22 Type 2 diabetes mellitus with diabetic chronic kidney disease; K76.6 Portal hypertension; I12.0 Hypertensive chronic kidney disease with stage 5 chronic kidney disease or end stage renal disease; E87.1 Hypo-osmolality and hyponatremia; N25.81 Secondary hyperparathyroidism of renal origin; E11.65 Type 2 diabetes mellitus with hyperglycemia; K74.60 Unspecified cirrhosis of liver; R65.20 Severe sepsis without septic shock; R53.83 Other fatigue; E87.5 Hyperkalemia; E87.70 Fluid overload, unspecified; Z99.2 Dependence on renal dialysis; Z91.15 Patient's noncompliance with renal dialysis; I25.10 Atherosclerotic heart disease of native coronary artery without angina pectoris; Z79.4 Long term (current) use of insulin; Z79.82 Long term (current) use of aspirin; D63.1 Anemia in chronic kidney disease; E53.8 Deficiency of other specified B group vitamins; Z95.5 Presence of coronary angioplasty implant and graft; Z88.8 Allergy status to other drugs, medicaments and biological substances; K21.9 Gastro-esophageal reflux disease without esophagitis; B95.7 Other staphylococcus as the cause of diseases classified elsewhere; E66.9 Obesity, unspecified; Z68.32 Body mass index [BMI] 32.0-32.9, adult; E88.09 Other disorders of plasma-protein metabolism, not elsewhere classified; I48.0 Paroxysmal atrial fibrillation; F17.210 Nicotine dependence, cigarettes, uncomplicated; I08.1 Rheumatic disorders of both mitral and tricuspid valves
CPT/HCPCS: 36415; 36416; 71010; 71046; 80048; 80053; 80202; 82140; 83605; 84484; 85025; 85610; 86140; 87040; 87077; 87149; 87186; 87340; 90935; 92960; 93005; 93010; 93306; 93312; 94640; 94760; 96374; 96375; A4216; G0257; G8978-GP-CK; G8979-GP-CK; G8980-GP-CK; J1815; J1956; J2001; J2185; J2704; J3370; J7050; J7620